=== PATIENT | female | born 1970 | race Caucasian/White ===

== ENCOUNTER → 2018-06-12 | Outpatient (CLI) | payer OTHER ==
--- NOTE | 2018-06-14 08:00 | PE ---
EXAMINATION TYPE: PET CT fusion skull to thigh DATE OF EXAM: 06/12/2018 COMPARISON: NONE HISTORY: Breast cancer originally diagnosed 2008 with bilateral mastectomies and chemotherapy and com pletion of radiation treatment to the left breast in 2009. TECHNIQUE: Following the intravenous administration of 12.901 mCi of F-18 FDG, whole body images are performed from the skull base to the midthigh. Images are reviewed on the computer in the coronal, axial, and sagittal planes. Reconstructed rotating images are created on independent workstation and reviewed on the computer. A noncontrast CT is performed in conjunction with the PET scan. SCAN: Subsequent Scan FINDINGS: SKULL BASE AND NECK: No areas of suspicious hypermetabolic uptake. CHEST, MEDIASTINUM, AND HILAR REGION: No areas of suspicious hypermetabolic uptake. Bilateral breast implants are identified. No suspicious axillary adenopathy. ABDOMEN AND PELVIS: Normal excretion collecting system and bladder. No areas of suspicious hypermetab olic uptake. OSSEOUS STRUCTURES: No areas of suspicious hypermetabolic uptake. OTHER CT: Surgical clips towards the left axilla axial image 69 are noted. No suspicious adenopathy a t this level is seen. Dependent atelectasis bilateral lungs is present. There is 2 mm calculus right kidney posteriorly mid pole level axial image 140. There is some facet a rthropathy in the lower lumbar spine. IMPRESSION: No areas of suspicious hypermetabolic uptake to suggest recurrent neoplasm. Surgical clip s left axillary region identified.
== END | disposition home or self-care (01) ==
LOC: RADPETMAIN 08:14
PROVIDERS: ATTEND Internal Medicine Hematology & Oncology
DX: C50.611 Malignant neoplasm of axillary tail of right female breast (principal); C50.612 Malignant neoplasm of axillary tail of left female breast
CPT/HCPCS: 78815; A9552